=== PATIENT | male | born 1955 | race Caucasian/White ===

== ENCOUNTER 2022-07-02 21:58 | Emergency (ER) | payer OTHER, MEDICARE ==
[2022-07-02] MEDS ORDERED: CIPROFLOXACIN-DEXAMETH 0.3-0.1% DROPS 7.5 ML BTL LEFT EAR STA (22:55)
--- NOTE | 2022-07-02 23:43 | ED ---
General Adult HPI - General Chief complaint: ENT Stated complaint: Earache Time Seen by Provider: 07/02/22 22:31 Source: patient, RN notes reviewed Mode of arrival: ambulatory Limitations: no limitations - History of Present Illness Initial comments: 66-year-old male presents to the emergency department chief complaint of earache. He states that started in March he had relief for about a month and then had the pain again and has been worse in the past 2-3 days. He has not been treated for this in the past. Denies fever, chills. Past medical history includes hypertension. - Related Data Allergies Allergy/AdvReac Type Severity Reaction Status Date / Time No Known Allergies Allergy Verified 07/02/22 22:24 Review of Systems ROS Statement: Those systems with pertinent positive or pertinent negative responses have been documented in the HPI. ROS Other: All systems not noted in ROS Statement are negative. Past Medical History Past Medical History: Hypertension History of Any Multi-Drug Resistant Organisms: None Reported Past Surgical History: No Surgical Hx Reported Past Psychological History: Anxiety, Depression, PTSD Smoking Status: Former smoker Past Alcohol Use History: None Reported Past Drug Use History: None Reported General Exam Limitations: no limitations General appearance: alert, in no apparent distress Head exam: Present: atraumatic, normocephalic, normal inspection Eye exam: Present: normal appearance, PERRL, EOMI ENT exam: Present: normal exam, mucous membranes moist, other (No mastoid tenderness). Absent: TM's normal bilaterally (Left TM unable to be visualized due to edema in the external ear canal), normal external ear exam (Swelling to the left ear canal) Neck exam: Present: normal inspection. Absent: tenderness, meningismus, lymphadenopathy Respiratory exam: Present: normal lung sounds bilaterally. Absent: respiratory distress, wheezes, rales, rhonchi, stridor Cardiovascular Exam: Present: regular rate, normal rhythm, normal heart sounds. Absent: systolic murmur, diastolic murmur, rubs, gallop, clicks Back exam: Present: normal inspection Neurological exam: Present: alert, oriented X3, CN II-XII intact Psychiatric exam: Present: normal affect, normal mood Skin exam: Present: warm, dry, intact, normal color. Absent: rash Course Vital Signs 07/02/22 22:18 Temperature 98.3 F Pulse Rate 93 Respiratory 20 Rate Blood Pressure 149/89 O2 Sat by Pulse 95 Oximetry Medical Decision Making - Medical Decision Making Was pt. sent in by a medical professional or institution (LETICIA Mcrae, [employer]TAIN, urgent care, hospital, or residential...) When possible be specific @ -No Did you speak to anyone other than the patient for history (EMS, parent, family, police, friend...)? What history was obtained from this source @ -No Did you review nursing and triage notes (agree or disagree)? Why? @ -I reviewed and agree with nursing and triage notes Were old charts reviewed (outside hosp., previous admission, EMS record, old EKG, old radiological studies, urgent care reports/EKG's, residential records)? Report findings @ -No old charts were reviewed Differential Diagnosis (chest pain, altered mental status, abdominal pain women, abdominal pain men, vaginal bleeding, weakness, fever, dyspnea, syncope, headache, dizziness, GI bleed, back pain, seizure, CVA, palpatations, mental health, musculoskeletal)? @ -Otitis media, otitis externa, malignant otitis externa, foreign body, this is not all inclusive EKG interpreted by me (3pts min.). @ -None X-rays interpreted by me (1pt min.). @ -None done CT interpreted by me (1pt min.). @ -None done U/S interpreted by me (1pt. min.). @ -None done What testing was considered but not performed or refused? (CT, X-rays, U/S, labs)? Why? @ -None What meds were considered but not given or refused? Why? @ -None Did you discuss the management of the patient with other professionals (professionals i.e. LETICIA Mcrae, [employer]SEL CAPTAIN, lab, RT, psych nurse, social media intern, brake coupler road freight, teacher, chief mechanical officer, director of casework)? Give summary @ -No Was smoking cessation discussed for >3mins.? @ -No Was critical care preformed (if so, how long)? @ -No Were there social determinants of health that impacted care today? How? (Homelessness, low income, unemployed, alcoholism, drug addiction, transportation, low edu. Level, literacy, decrease access to med. care, penitentiary, rehab)? @ -No Was there de-escalation of care discussed even if they declined (Discuss DNR or withdrawal of care, Hospice)? DNR status @ -No What co-morbidities impacted this encounter? (DM, HTN, Smoking, COPD, CAD, Cancer, CVA, ARF, Chemo, Hep., AIDS, mental health diagnosis, sleep apnea, morbid obesity)? @ -None Was patient admitted / discharged? Hospital course, mention meds given and route, prescriptions, significant lab abnormalities, going to OR and other pertinent info. @ -Discharged. Patient presented to the emergency Department with left-sided earache worsening within the last 2-3 days. Patient reports that he is a nondiabetic. He has not been treated for this in the past. On examination, there is swelling to the left ear canal. Minimal visualization of the left TM. No tenderness to the mastoid bone. No evidence of cranial nerve involvement, no trismus. Ot[place]ick was placed in the left ear and 4 drops of Ciprodex were placed. Patient was given Ciprodex drops to go home with and advised to apply 4 drops twice a day for 7 days. Patient advised to follow-up with his primary care provider or return to the emergency Department if he does not have an improve ment in symptoms. Patient discharged home in stable condition. Case discussed with my attending, Dr. Hong. Undiagnosed new problem with uncertain prognosis? @ -No Drug Therapy requiring intensive monitoring for toxicity (Heparin, Nitro, Insulin, Cardizem)? @ -No Were any procedures done? @ -No Diagnosis/symptom? @ -otitis externa Acute, or Chronic, or Acute on Chronic? @ -acute Uncomplicated (without systemic symptoms) or Complicated (systemic symptoms)? @ -uncomplicated Side effects of treatment? @ -No Exacerbation, Progression, or Severe Exacerbation? @ -No Poses a threat to life or bodily function? How? (Chest pain, [place], [place], pneumonia, PE, COPD, DKA, ARF, appy, cholecystitis, CVA, Diverticulitis, Homicidal, Suicidal, threat to staff... and all critical care pts) @ -No Disposition Clinical Impression: Otitis externa Disposition: HOME SELF-CARE Condition: Stable Instructions (If sedation given, give patient instructions): Earache (ED) Additional Instructions: Apply 4 drops to the left ear twice a day for 7 days. Follow-up with her primary care provider. Please return to the Emergency Department if symptoms worsen or any other concerns. Is patient prescribed a controlled substance at d/c from ED?: No Referrals: None,Stated [Primary Care Provider] - 1-2 days Time of Disposition: 23:37
[2022-07-02 23:53] VITALS: BP 159/100; PULSE 100; RESP 22; TEMP 97.9
== END 2022-07-03 00:29 | disposition home or self-care (01) ==
LOC: EC 21:58
DX: H60.92 Unspecified otitis externa, left ear (principal); Z86.59 Personal history of other mental and behavioral disorders; Z87.891 Personal history of nicotine dependence
CPT/HCPCS: 99282

== ENCOUNTER 2022-07-05 08:10 | Emergency (ER) | payer OTHER, MEDICARE ==
[2022-07-05 08:33] VITALS: RESP 18; TEMP 97.9
[2022-07-05] MEDS ORDERED: DEXAMETHASONE SOD PHOSPHATE 10 MG/ML 1 ML VIAL IM STA (08:50)
--- NOTE | 2022-07-05 10:54 | ED ---
ENT HPI - General Chief complaint: Recheck/Abnormal Lab/Rx Stated complaint: throat pain Time Seen by Provider: 07/05/22 08:34 Source: patient, RN notes reviewed Mode of arrival: ambulatory Limitations: no limitations - History of Present Illness Initial comments: This is a 66-year-old male who presents to the emergency department for a sore throat and left ear pain. Patient was evaluated here 2 days ago and diagnosed with otitis externa. He has since been using Ciprodex drops with no relief. States that he has now started to develop a sore throat on the left side that is worse when trying to swallow. Denies any fevers. Notes that the ear pain has been a problem since March. Denies any drainage from the ear. He does note some difficulty with hearing, and states that his hearing feels muffled and full of fluid. Denies any fevers, chills, sore throat, cough, dyspnea, chest pain, palpitations, abdominal pain, nausea, vomiting, diarrhea, back pain, or headaches. MD complaint: sore throat, ear pain Location: L ear - Related Data Allergies Allergy/AdvReac Type Severity Reaction Status Date / Time No Known Allergies Allergy Verified 07/05/22 08:33 Review of Systems ROS Statement: Those systems with pertinent positive or pertinent negative responses have been documented in the HPI. ROS Other: All systems not noted in ROS Statement are negative. Past Medical History Past Medical History: Hypertension History of Any Multi-Drug Resistant Organisms: None Reported Past Surgical History: No Surgical Hx Reported Past Psychological History: Anxiety, Depression, PTSD Smoking Status: Former smoker Past Alcohol Use History: None Reported Past Drug Use History: None Reported General Exam Limitations: no limitations General appearance: alert, in no apparent distress Head exam: Present: atraumatic, normocephalic, normal inspection ENT exam: Present: normal oropharynx, mucous membranes moist, other (White clumpy material in the left ear canal and white material behind the left TM. There is swelling of the left ear canal. No erythema to the canal or TM. No tenderness to palpation of the tragus or pinna.) Neck exam: Present: normal inspection. Absent: tenderness, meningismus, lymphadenopathy Respiratory exam: Present: normal lung sounds bilaterally. Absent: respiratory distress, wheezes, rales, rhonchi, stridor Cardiovascular Exam: Present: regular rate, normal rhythm, normal heart sounds. Absent: systolic murmur, diastolic murmur, rubs, gallop, clicks Neurological exam: Present: alert, oriented X3, CN II-XII intact Psychiatric exam: Present: normal affect, normal mood Skin exam: Present: warm, dry, intact, normal color. Absent: rash Course Vital Signs 07/05/22 07/05/22 08:29 11:49 Temperature 97.9 F Pulse Rate 77 74 Respiratory 18 18 Rate Blood Pressure 157/95 160/90 O2 Sat by Pulse 96 96 Oximetry Medical Decision Making - Medical Decision Making This is a 66-year-old male who presents to the emergency department for ear pain and a sore throat. Was pt. sent in by a medical professional or institution? @ -No Did you speak to anyone other than the patient for history? @ -No Did you review nursing and triage notes? @ -Yes, and I agree, it is accurate with regards to the patient's symptoms. Were old charts reviewed? @ -No Differential Diagnosis? @ -Differential Ear Pain: Otitis media, otitis externa, eustachian tube dysfunction, allergic rhinitis, barotrauma, bullous myringitis, this is not meant to be an all-inclusive list. -Differential Sore Throat: Strep pharyngitis, herpes zoster, COVID, influenza, GERD, allergic rhinitis, mononucleosis, this is not meant to be an all-inclusive list. EKG interpreted by me (3pts min.)? @ -Not obtained X-rays interpreted by me (1pt min.)? @ -Not obtained CT interpreted by me (1pt min.)? @ -Not obtained U/S interpreted by me (1pt. min.)? @ -Not obtained What testing was considered but not performed? (CT, X-rays, U/S, labs)? Why? @ -Not obtained What meds were considered but not given? Why? @ -Not obtained Did you discuss the management of the patient with other professionals? @ -Yes, this was discussed with case management, who was able to get the patient an appointment with ENT tomorrow morning. Did you reconcile home meds? @ -No Was smoking cessation discussed for >3mins.? @ -No Was critical care preformed (if so, how long)? @ -No Were there social determinants of health that impacted care today? How? (Homelessness, low income, unemployed, alcoholism, drug addiction, transportation, low edu. Level, literacy, decrease access to med. care, [facility], rehab)? @ -No Was there de-escalation of care discussed even if they declined? (Discuss DNR or withdrawal of care, Hospice)? @ -No What co-morbidities impacted this encounter? (DM, HTN, Smoking, COPD, CAD, Cancer, CVA, Hep., AIDS, mental health diagnosis, sleep apnea, morbid obesity)? @ -None Was patient admitted / discharged? @ -Discharged. Rapid strep test negative. Physical examination of the patient reveals a notable amount of white material in the ear canal. Patient notes that he tries to keep his ears moist due to problems with chronic dryness. This poses concern for a fungal infection. Patient is not a diabetic. I spoke with case management, who was able to get the patient an appointment with Dr. Thornton, ENT, tomorrow morning. Advised the patient that we will hold off providing any treatment, as the cause of his symptoms is not entirely clear. Patient was given the information for Dr. Thornton's office and instructed to arrive 15 minutes early to fill out the appropriate forms. Otherwise advised to continue using the eardrops as prescribed. Undiagnosed new problem with uncertain prognosis? @ -None Drug Therapy requiring intensive monitoring for toxicity (Heparin, Nitro, Insulin, Cardizem)? @ -None Were any procedures done? @ -None Diagnosis/symptom? @ -Left ear pain Acute, or Chronic, or Acute on Chronic? @ -Chronic Uncomplicated (without systemic symptoms) or Complicated (systemic symptoms)? @ -Uncomplicated Side effects of treatment? @ -None Exacerbation, Progression, or Severe Exacerbation] @ -Progression Poses a threat to life or bodily function? @ -No Diagnosis/symptom? @ -Sore throat Acute, or Chronic, or Acute on Chronic? @ -Acute Uncomplicated (without systemic symptoms) or Complicated (systemic symptoms)? @ -Uncomplicated Side effects of treatment? @ -None Exacerbation, Progression, or Severe Exacerbation] @ -Not applicable Poses a threat to life or bodily function? @ -No Return precautions reviewed in depth, the patient is instructed to return to the emergency department with any new, worsening, or concerning symptoms. Patient verbalized understanding. This case was discussed in detail with the attending ED physician, Dr. Green. Presentation, findings, and treatment plan discussed in detail as well. - Lab Data Lab Results 07/05/22 Range/Units 09:13 Group A Strep (PCR) NOT DETECTED (Not Detectd) Disposition Clinical Impression: Left ear pain, Sore throat Disposition: HOME SELF-CARE Instructions (If sedation given, give patient instructions): Pharyngitis (ED), Earache (ED) Additional Instructions: Return to the emergency department with any new, worsening, or concerning symptoms. Follow-up with ENT as scheduled tomorrow morning for further evaluation and management of the ear and throat pain. Is patient prescribed a controlled substance at d/c from ED?: No Referrals: Homer Thornton MD [STAFF PHYSICIAN] - 07/06/22 8:45 am (Please be at appointment by 8:30am to complete paperwork. Bring ID and Insurance cards. ) None,Stated [Primary Care Provider] - 1-2 days
[2022-07-05 11:50] VITALS: BP 160/90; PULSE 74
== END 2022-07-05 11:50 | disposition home or self-care (01) ==
LOC: EC 08:10
DX: J02.9 Acute pharyngitis, unspecified (principal); H92.02 Otalgia, left ear; I10 Essential (primary) hypertension; Z86.59 Personal history of other mental and behavioral disorders; Z87.891 Personal history of nicotine dependence
CPT/HCPCS: 87651; 99283; 96372; J1100